=== PATIENT | male | born 1975 | race Caucasian/White ===

== ENCOUNTER 2017-08-22 15:41 | Emergency (ER) | payer MEDICAID ==
[~2017-08-22] VITALS: Ht 167.6 cm; Wt 89.8 kg
[2017-08-22 15:58] VITALS: Ht 167.6 cm; Wt 89.8 kg
[2017-08-22 17:20] VITALS: BP 120/78
== END 2017-08-22 17:20 | disposition home or self-care (01) ==
LOC: ED 15:41
DX: S83.412A Sprain of medial collateral ligament of left knee, initial encounter (principal); X58.XXXA Exposure to other specified factors, initial encounter; Y93.89 Activity, other specified; Y92.89 Other specified places as the place of occurrence of the external cause; Y99.8 Other external cause status